=== PATIENT | female | born 1990 | race Caucasian/White ===

== ENCOUNTER 2023-12-11 13:56 | Outpatient (CLI) | payer BC, SELFPAY ==
--- NOTE | 2023-12-11 14:00 | CRLHL7_ITS ---
For Patients: As a result of the Cures Act, medical imaging exams and procedure reports are released immediately into your electronic medical record. You may view this report before your referring provider. If you have questions, please contact your health care provider. INDICATION: First trimester scan, establish dates. COMPARISON: None. TECHNIQUE: Real-time farooq-scale imaging of the pelvis was performed. FINDINGS: Sonographic imaging demonstrates a single living intrauterine gestation. The embryo demonstrates a regular cardiac rate measuring 178 beats per minute. The embryo`s crown-rump length measurement of 2.1 cm corresponds to a gestational age of 8 weeks 5 days with a sonographic due date of 07/17/2024. There is a normal-appearing yolk sac. There are no gross abnormalities noted within the embryo at this early state of development. The gestational sac has a normal appearance. There is no evidence of a perigestational hemorrhage. The amount of fluid within the sac appears appropriate for gestational age. The cervix is closed. The myometrium appears normal. The ovaries are of normal size. Corpus luteal cyst left ovary. There are no suspicious fluid collections noted in the cul-de-sac. IMPRESSION: Normal first trimester OB ultrasound exam. Gestational age calculated at 8 weeks 5 days with a sonographic due date of 07/17/2024. Dictated by Silvino Brambila MD @ 12/13/2023 12:38:35 PM (Electronically Signed)
== END 2023-12-11 13:57 | disposition home or self-care (01) ==
LOC: US 13:59
PROVIDERS: Visit Provider Registered Nurse
DX: Z34.91 Encounter for supervision of normal pregnancy, unspecified, first trimester (principal); Z3A.08 8 weeks gestation of pregnancy
CPT/HCPCS: 76817; 82565; 82570; 84156; 84450; 84460; 84520; 86592; 86703; 86704; 86706; 86762; 86787; 86803; 86850; 86900; 86901; 87086; 87340; 87491; 87591

== ENCOUNTER 2023-12-11 15:01 | Outpatient (CLI) | payer BC, SELFPAY ==
[2023-12-11 19:13] LABS: Chlamydia DNA Amplified* NOT DETECTED (No Detected); GC DNA Amplified* NOT DETECTED (No Detected)
== END 2023-12-11 15:02 | disposition home or self-care (01) ==
PROVIDERS: Visit Provider Registered Nurse
DX: Z34.91 Encounter for supervision of normal pregnancy, unspecified, first trimester (principal); Z3A.08 8 weeks gestation of pregnancy
CPT/HCPCS: 82565; 82570; 84156; 84450; 84460; 84520; 86592; 86703; 86704; 86706; 86762; 86787; 86803; 86850; 86900; 86901; 87086; 87340; 87491; 87591

== ENCOUNTER 2023-12-13 10:55 | Outpatient (CLI) | payer BC, SELFPAY | END 2023-12-13 10:56 | disposition home or self-care (01) | LOC: NFLDREF 12-16 09:34 | PROVIDERS: Visit Provider Registered Nurse | DX: Z34.91 Encounter for supervision of normal pregnancy, unspecified, first trimester (principal); Z3A.08 8 weeks gestation of pregnancy | CPT/HCPCS: 82570; 84156 ==

== ENCOUNTER 2024-03-02 09:06 | Outpatient (CLI) | payer BC, SELFPAY ==
--- NOTE | 2024-03-02 09:15 | CRLHL7_ITS ---
For Patients: As a result of the Century Cures Act, medical imaging exams and procedure reports are released immediately into your electronic medical record. You may view this report before your referring provider. If you have questions, please contact your health care provider. INDICATION: Evaluate anatomy. COMPARISON: 12/11/2023 TECHNIQUE: Real time farooq scale imaging of the fetus was performed as well as color Doppler analysis of the umbilical vessels. FINDINGS: Sonographic imaging demonstrates a single living intrauterine gestation. Fetus demonstrates a regular cardiac rate of 147 beats per minute. Fetus has a variable position. The placenta lies posteriorly without evidence of placenta previa. Edge of the placenta is located 5.7 cm from the internal cervical os. Amniotic fluid volume appears normal. Single deepest vertical pocket: 3.5 cm. The cervix is closed and measures 4.0 cm in length. The composite ultrasound gestational age is calculated at 20 weeks 2 days with an estimated sonographic due date of 07/18/2024. The estimated weight is 356 grams which lies at the 47th %. The following biometric measurements were obtained: Biparietal diameter: 4.5 cm/19 weeks 4 days 19th% Head circumference: 17.4 cm/19 weeks 6 days 20th% Abdominal circumference: 16.2 cm/21 weeks 2 days 71st% Femur length: 3.1 cm/19 weeks 5 days 20th% The HC/AC ratio measures: 1.07 range (1.07-1.25) On anatomic survey, there is a normal appearance of the cerebral ventricles, cavum septi pellucidi, cisterna magna and cerebellum. The nose, lips, and facial profile appear normal. The cervical, thoracic and lumbar spine are well visualized and appear normal. There is a normal four-chamber heart view and the left and right ventricular outflow tracts appear normal. The diaphragm appears normal. Hypoechoic material within the stomach. The kidneys and bladder also appear normal. There is a normal three-vessel cord and cord insertion site. The four extremities appear normal. IMPRESSION: Concordance of clinical and sonographic dating. Hypoechoic material within the stomach. Remainder of the anatomic survey is normal. Consider follow-up in the 3rd trimester or level 2 ultrasound. Dictated by Silvino Brambila MD @ 03/03/2024 2:51:26 PM (Electronically Signed)
== END 2024-03-02 09:07 | disposition home or self-care (01) ==
LOC: US 09:07
PROVIDERS: Visit Provider Registered Nurse
DX: Z34.92 Encounter for supervision of normal pregnancy, unspecified, second trimester (principal); Z3A.20 20 weeks gestation of pregnancy
CPT/HCPCS: 76805